=== PATIENT | male | born 1970 | race Caucasian/White ===

== ENCOUNTER 2018-11-05 06:10 | Day surgery (SDC) | payer MEDICAID ==
[~2018-11-05] VITALS: Ht 175.3 cm; Wt 98.4 kg
[2018-11-05] MEDS ORDERED: PROPOFOL 200MG/ 20ML VIAL (DIPRIVAN) IV ONE (07:55)
[2018-11-05] MEDS ORDERED: MIDAZOLAM HCL 5 MG/5 ML VIAL IVP ONE (07:55)
[2018-11-05] MEDS ORDERED: GLYCOPYRROLATE 0.2 MG/ML VIAL IJ ONE (07:55)
[2018-11-05] MEDS ORDERED: BUPIVACAINE /EPINEPHRINE/PF 0.25% 30 ML VIAL INJ ONE (07:55)
[2018-11-05] MEDS ORDERED: NS IRRIG SOLN 1000 ML IR ONE (07:55)
[2018-11-05] MEDS ORDERED: NS 1000 ML IV.SOLN IV ONE (07:55)
[2018-11-05] MEDS ORDERED: SEVOFLURANE 15 MIN GAS INH ONE (07:55)
[2018-11-05] MEDS ORDERED: ONDANSETRON HCL 4 MG/2 ML VIAL IVP ONE (07:55)
[2018-11-05] MEDS ORDERED: NEOSTIGMINE METHYLSULFATE 1 MG/ML, 10 ML VIAL IVP ONE (07:55)
[2018-11-05] MEDS ORDERED: CEFAZOLIN 2 GM IVPB PREMIX 50 ML IV ONE (07:55)
[2018-11-05] MEDS ORDERED: LR 1,000 ML IV.SOLN IV ONE (07:55)
[2018-11-05] MEDS ORDERED: KETOROLAC TROMETHAMINE 30 MG VIAL IVP ONE (07:55)
[2018-11-05] MEDS ORDERED: ROCURONIUM BROMIDE 10 MG/ML (ZEMURON) IV ONE (07:55)
[2018-11-05] MEDS ORDERED: fentaNYL CITRATE/PF 100 MCG/2 ML AMP IVP ONE (07:55)
[2018-11-05] MEDS ORDERED: POLYMYXIN 500,000/BACIT.10,000 UNITS in NS IRR 1 L IR ONE (07:57)
[2018-11-05] MEDS ORDERED: fentaNYL CITRATE/PF 100 MCG/2 ML AMP IVP PRN (08:45)
[2018-11-05] MEDS ORDERED: ONDANSETRON HCL 4 MG/2 ML VIAL IVP PRN (08:45)
[2018-11-05] MEDS ORDERED: KETOROLAC TROMETHAMINE 30 MG VIAL IVP PRN (08:45)
[2018-11-05] MEDS ORDERED: D5/0.45 NS 1,000 ML IV SCH (12:03)
[2018-11-05] MEDS ORDERED: HYDROcodone/ACETAMIN 5-325 MG TAB (NORCO/ VICODIN) PO PRN ×2 (12:15)
[2018-11-05] MEDS: fentaNYL CITRATE/PF 100 MCG/2 ML AMP IVP PRN ×2 (12:30→12:37)
[2018-11-05] MEDS ORDERED: fentaNYL CITRATE/PF 100 MCG/2 ML AMP ONE (12:32)
[2018-11-05] MEDS ORDERED: KETOROLAC TROMETHAMINE 30 MG VIAL ONE (13:06)
[2018-11-05 14:28] VITALS: BP_SYST 130
[2018-11-05] MEDS ORDERED: HYDROcodone/ACETAMIN 5-325 MG TAB (NORCO/ VICODIN) ONE (15:03)
[2018-11-05] MEDS ORDERED: METOCLOPRAMIDE HCL 10 MG/2 ML VIAL IVP SCH (18:00)
== END 2018-11-05 16:20 | disposition home or self-care (01) ==
LOC: SMU 06:10 → SDS 06:10
PROVIDERS: ATTEND Surgery
DX: K40.20 Bilateral inguinal hernia, without obstruction or gangrene, not specified as recurrent (principal); K43.2 Incisional hernia without obstruction or gangrene; D17.6 Benign lipomatous neoplasm of spermatic cord; Z98.890 Other specified postprocedural states; Z82.49 Family history of ischemic heart disease and other diseases of the circulatory system; I10 Essential (primary) hypertension
CPT/HCPCS: 49560; 49650; 88302; 88304; C1727; C1781; J0690; J1885; J2250; J2405; J2704; J2710; J3010; J3490 ×2; J7030; J7120